=== PATIENT | male | born 1970 | race Caucasian/White ===

== ENCOUNTER 2016-07-18 08:07 | Day surgery (SDC) | payer OTHER ==
[2016-07-18] MEDS ORDERED: Lactated Ringer's 500 ML IV ONE (09:09)
[2016-07-18] MEDS ORDERED: Propofol 10 mg/ml Inj (20 ML) ONE (09:31)
[2016-07-18 10:02] VITALS: BP 121/74; PULSE 89; RESP 18; TEMP 97.6; O2SAT 100
== END 2016-07-18 10:34 | disposition home or self-care (01) ==
LOC: H.ENDO 08:07
PROVIDERS: ATTEND Internal Medicine Gastroenterology
DX: K30 Functional dyspepsia (principal); K22.8 Other specified diseases of esophagus; K31.9 Disease of stomach and duodenum, unspecified; R10.13 Epigastric pain

== ENCOUNTER 2017-12-28 18:32 | Emergency (ER) | payer OTHER ==
[2017-12-28 18:39] VITALS: TEMP 100.3
[2017-12-28] MEDS ORDERED: Sodium Chloride 0.9% 1,000 ML IV STA (19:57)
[2017-12-28 20:50] LABS: SQUAMOUS EPITHIAL < 1 /hpf (0-5); URINE BILIRUBIN NEGATIVE (NEGATIVE); URINE BLOOD MODERATE (NEGATIVE); URINE CLARITY SLIGHTY-CLOUDY (Clear); URINE COLOR YELLOW (YELLOW); URINE GLUCOSE (UA) NEG (Normal); URINE LEUKOCYTE ESTERASE NEG Leu/uL (Negative); URINE PROTEIN 30 mg/dL (NEGATIVE); URINE UROBILINOGEN 0.2-1.0 mg/dL (0.2-1.0)
--- NOTE | 2017-12-28 21:01 | ED PDOC ---
HPI: General Adult Time Seen by Provider: 12/28/17 19:17 Chief Complaint (Nursing): GI Problem Chief Complaint (Provider): GI Problem History Per: Patient History/Exam Limitations: no limitations Onset/Duration Of Symptoms: Days (yesterday) Current Symptoms Are (Timing): Still Present Additional Complaint(s): 47 year old male with no significant past medical history presents to the ED with fever and diarrhea since yesterday. Patient reports he had 5-6 episo emery of nonbloody, water bowel movements and a low grade fever. He has been taking Tylenol with relief, but the fever returns. Patient denies abdominal pain, vomiting, travel history or any other medical complaints. He reports some nausea. 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 PMD: Dr. Del Castillo Past Medical History Reviewed: Historical Data, Nursing Documentation, Vital Signs Vital Signs: Last Vital Signs Temp 100.3 F H 12/28/17 18:37 Pulse 105 H 12/28/17 18:37 Resp 19 12/28/17 18:37 BP 137/80 12/28/17 18:37 Pulse Ox 97 12/28/17 18:37 - Medical History PMH: No Chronic Diseases - Surgical History Other surgeries: right ganglion cyst removal - Family History Family History: States: Unknown Family Hx - Home Medications Home Medications: Ambulatory Orders Medication Instructions Recorded Dicyclomine [Bentyl] 20 mg PO Q12 PRN #20 tab 12/28/17 Ondansetron ODT [Zofran ODT] 4 mg PO Q6 PRN #6 odt 12/28/17 - Allergies Allergies/Adverse Reactions: Allergies Allergy/AdvReac Type Severity Reaction Status Date / Time No Known Allergies Allergy Verified 07/18/16 09:07 Review of Systems ROS Statement: Except As Marked, All Systems Reviewed And Found Negative Constitutional: Positive for: Fever Gastrointestinal: Positive for: Diarrhea Physical Exam - Reviewed Nursing Documentation Reviewed: Yes Vital Signs Reviewed: Yes - Physical Exam Appears: Positive for: Non-toxic, No Acute Distress Head Exam: Positive for: ATRAUMATIC, NORMOCEPHALIC Skin: Positive for: Normal Color Eye Exam: Positive for: Normal appearance ENT: Positive for: Other (dry mucous membranes) Cardiovascular/Chest: Positive for: Regular Rate, Rhythm. Negative for: Murmur Respiratory: Positive for: Normal Breath Sounds. Negative for: Respiratory Distress Gastrointestinal/Abdominal: Positive for: Normal Exam, Soft. Negative for: Tenderness Extremity: Positive for: Normal ROM (upper and lower). Negative for: Pedal Edema, Deformity Neurologic/Psych: Positive for: Alert, Oriented (x3) - Laboratory Results Result Diagrams: 12/28/17 20:23 12/28/17 20:23 - ECG O2 Sat by Pulse Oximetry: 97 (RA) Pulse Ox Interpretation: Normal Medical Decision Making Medical Decision Making: Time: 1956 Initial Impression: 47 year old male with diarrheal illness Initial Plan: --labs --IV fluids Time: 2199 --Patient reports improvement in symptoms. Labs reviewed to demonstrate no clinically significant abnormalities. Diagnosis gastroenteritis. Scribe Attestation: Documented by Margot Kunz, acting as a scribe for Benigno Francisco MD Provider Scribe Attestation: All medical record entries made by the Scribe were at my direction and personally dictated by me. I have reviewed the chart and agree that the record accurately reflects my personal performance of the history, physical exam, medical decision making, and the department course for this patient. I have also personally directed, reviewed, and agree with the discharge instructions and disposition. Disposition - Clinical Impression Clinical Impression: Gastroenteritis - Disposition Disposition Time: 22:00 Condition: STABLE Prescriptions: Dicyclomine [Bentyl] 20 mg PO Q12 PRN #20 tab PRN Reason: Diarrhea Ondansetron ODT [Zofran ODT] 4 mg PO Q6 PRN #6 odt PRN Reason: Nausea/Vomiting Instructions: Diarrhea in Adolescents and Adults Forms: [employer] ([place]), [facility] ED School/Work Excuse
[2017-12-28 21:11] LABS: BASO % 0.4 % (0.0-2.0); EOS % 0.1 % (0.0-4.0); HEMOGLOBIN 15.1 g/dL (12.0-18.0); LYMPH % 15.4 % (20.0-40.0); MEAN CELL VOLUME 92.2 fl (80.0-94.0); MEAN CORPUSCULAR HEMOGLOBIN 30.6 pg (27.0-31.0); MEAN CORPUSCULAR HGB CONC 33.1 g/dL (33.0-37.0); MEAN PLATELET VOLUME 10.3 fl (7.2-11.7); MONO # 0.5 K/uL (0.0-0.8); MONO % 8.1 % (0.0-10.0); NEUT # 5.1 K/uL (1.8-7.0); RBC 4.96 Mil/uL (4.40-5.90); RED CELL DISTRIBUTION WIDTH 13.7 % (11.5-14.5); WHITE BLOOD COUNT 6.7 K/uL (4.8-10.8)
[2017-12-28 21:12] LABS: ALB/GLOB RATIO 1.2 (1.0-2.1); ALBUMIN 3.8 g/dL (3.5-5.0); ALT/SGPT 48 U/L (21-72); AST/SGOT 25 U/L (17-59); BLOOD UREA NITROGEN 13 mg/dl (9-20); CALCIUM 8.4 mg/dL (8.4-10.2); GFR NON-AFRICAN AMERICAN > 60
[2017-12-28 22:00] VITALS: BP 121/70; PULSE 91; RESP 14
[2017-12-28 22:16] VITALS: O2SAT 97
== END 2017-12-28 22:00 | disposition home or self-care (01) ==
LOC: H.ER 18:32
DX: K52.9 Noninfective gastroenteritis and colitis, unspecified (principal); Z79.899 Other long term (current) drug therapy
CPT/HCPCS: 80053; 81003; 82948; 83605; 85025; 87040; 87804; 99283; J2405; J7030

== ENCOUNTER 2018-07-08 06:57 | Emergency (ER) | payer BC, OTHER ==
[2018-07-08 07:01] VITALS: BP 122/76; PULSE 76; RESP 18; TEMP 98.7; O2SAT 97; BMI 25.2
--- NOTE | 2018-07-08 07:37 | ED PDOC ---
HPI: General Adult Time Seen by Provider: 07/08/18 07:25 Additional Complaint(s): 47 y/o M with NO PMHx presents to Ed c/o L eye redness and swelling that began 2 days ago, Pt reports associated local cursting, significant yellowish discharge and mild discomfort. No symptoms on R eye. No ill contacts. No recent travel. Pt denies fever, chills, headache, nasal congestion, chest pain, SOB, rash or peripheral edema. PMD: none NKDA PMHx: denied PSHx: R wrist ganglion resection. FHx: NC SHx: NO tobacco, No rec drugs, ocasional alcohol. Past Medical History Vital Signs: Last Vital Signs Temp 98.7 F 07/08/18 07:00 Pulse 76 07/08/18 07:00 Resp 18 07/08/18 07:00 BP 122/76 07/08/18 07:00 Pulse Ox 97 07/08/18 07:00 - Family History Family History: States: Unknown Family Hx - Home Medications Home Medications: Ambulatory Orders Medication Instructions Recorded Dicyclomine [Bentyl] 20 mg PO Q12 PRN #20 tab 12/28/17 Ondansetron ODT [Zofran ODT] 4 mg PO Q6 PRN #6 odt 12/28/17 - Allergies Allergies/Adverse Reactions: Allergies Allergy/AdvReac Type Severity Reaction Status Date / Time No Known Allergies Allergy Verified 07/18/16 09:07 Review of Systems Constitutional: Negative for: Fever, Chills Eyes: Positive for: Conjunctivae Inflammation, Eyelid Inflammation, Redness. Negative for: Pain, Vision Change ENT: Negative for: Ear Pain, Nose Pain, Nose Discharge, Nose Congestion Cardiovascular: Negative for: Chest Pain, Palpitations Respiratory: Negative for: Cough, Shortness of Breath, Hemoptysis Gastrointestinal: Negative for: Nausea, Vomiting Musculoskeletal: Negative for: Neck Pain Skin: Negative for: Rash Physical Exam - Physical Exam Appears: Positive for: Well Head Exam: Positive for: ATRAUMATIC, NORMAL INSPECTION Skin: Positive for: Normal Color, Warm Eye Exam: Positive for: EOMI, PERRL, Conjunctival injection, Other (presence of yellowish discharge on corners of eye. ). Negative for: Scleral icterus Neck: Positive for: Normal, Painless ROM, Supple Cardiovascular/Chest: Positive for: Regular Rate, Rhythm, Chest Non Tender Respiratory: Positive for: Normal Breath Sounds Extremity: Positive for: Normal ROM. Negative for: Tenderness Neurological/Psych: Positive for: Awake, Alert, Normal Tone - ECG O2 Sat by Pulse Oximetry: 97 Medical Decision Making Medical Decision Makin:30 --Bacterial conjunctivitis. --Contact precautions given. Pt instructed to avoid contact with anyone within 24 hours after initiating medication since infection is very contagious. --Pt stable, is discharged home. Disposition - Clinical Impression Clinical Impression: Conjunctivitis - Patient ED Disposition Is Patient to be Admitted: No - Disposition Disposition: Routine/Home Disposition Time: 07:41 Condition: GOOD Instructions: Conjunctivitis (Pinkeye), Conjunctivitis (Pinkeye) (DC)
== END 2018-07-08 07:50 | disposition home or self-care (01) ==
LOC: H.ER 06:57
DX: H10.9 Unspecified conjunctivitis (principal)